=== PATIENT | female | born 1965 | race Caucasian/White ===

== ENCOUNTER → 2017-11-09 | Outpatient (CLI) | payer BC ==
[2017-11-09 12:17] LABS: HEMATOCRIT 40.1 % (36.0-47.0); HEMOGLOBIN 13.6 g/dL (12.0-15.5); MEAN CORPUSCULAR HEMOGLOBIN 30.8 pg (27.0-33.4); MEAN CORPUSCULAR HGB CONC 33.9 g/dL (32.0-36.0); MEAN CORPUSCULAR VOLUME 91 fl (80-97); PLATELET COUNT 291 10^3/uL (150-450); RED BLOOD COUNT 4.42 10^6/uL (3.72-5.28); RED CELL DISTRIBUTION WIDTH 13.4 % (11.5-14.0); WHITE BLOOD COUNT 6.2 10^3/uL (4.0-10.5)
[2017-11-09 12:46] LABS: ANION GAP 10 (5-19); BLOOD UREA NITROGEN 8 mg/dL (7-20); CALCIUM 9.3 mg/dL (8.4-10.2); CARBON DIOXIDE 27 mmol/L (22-30); CHLORIDE 101 mmol/L (98-107); GLUCOSE 95 mg/dL (75-110); POTASSIUM 4.3 mmol/L (3.6-5.0); SODIUM 138.3 mmol/L (137-145)
[2017-11-09 13:49] LABS: FOLATE 9.99 ng/mL (>2.76)
== END ==
LOC: OD 10:56
PROVIDERS: ATTEND Psychiatry & Neurology Psychiatry
DX: F41.0 Panic disorder [episodic paroxysmal anxiety] (principal); Z79.899 Other long term (current) drug therapy
CPT/HCPCS: 36415; 80048; 82607; 82652; 82746; 84443; 85027

== ENCOUNTER 2019-11-13 15:45 | Emergency (ER) | payer BC, OTHER ==
[2019-11-13] MEDS ORDERED: THIAMINE HCL 100 MG, FOLIC ACID 1 MG in NORMAL SALINE 250 ML IV ONE (16:34)
--- NOTE | 2019-11-13 16:48 | ER Document Report ---
ED Psych Disorder / Suicide - General Chief Complaint: Overdose Stated Complaint: OVERDOSE Time Seen by Provider: 11/13/19 16:08 Mode of Arrival: Medic Information source: Relative - Mesfin Notes: 54-year-old female arrived by EMS after overdosing on clonazepam around 20 tablets and Captain Adan or Sander Mckeon. Her confronted her around 1245 after she had been talking to an old lover and she texted back around the same time that she will not be a problem anymore. Mesfin her advises that she had similar threats and gestures over 7 months ago. Patient be cara having an affair around 10 years ago with a [employer] person. His suffered of her mother and father around 20 years ago as well as her son Patel being thrown into nursing home because of drugs at the same time. He is now in his 30s as well as a 31-year-old Evens and 29 yo Shamika. Patient has a history of asthma hypertension and takes hand-held nebulizer treatments as needed for her reactive airway disease. 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 The sequence of events with the grandparents and son in nursing home then followed. is 54 and advised he and patient have been for 35 years. Clonazepam was just filled on 09 November at [place] in [facility]. They are now 42 tablets left. TRAVEL OUTSIDE OF THE [place] IN LAST 30 DAYS: No - HPI Patient complains to provider of: Overdose, Suicidal plan - On text message of Evens's phone. Onset: This afternoon Onset was: Sudden Quality of pain: No pain Severity: Mild Pain Level: Denies Suicide Risk Factors: Depressed, Left letter of attempt Situational problems related to: Significant other, Son Suicide Attempt Method: Overdose Overdose of: Alcohol, Benzodiazepine - Related Data Allergies/Adverse Reactions: azithromycin [Azithromycin] Allergy (Unknown, Verified 11/13/19 16:23) Past Medical History - General Information source: Relative - Social History Smoking Status: Never Smoker Cigarette use (# per day): No Chew tobacco use (# tins/day): No Smoking Education Provided: No Frequency of alcohol use: Social Drug Abuse: Prescription drugs Lives with: Family Family History: Reviewed & Not Pertinent Patient has suicidal ideation: Yes Patient has homicidal ideation: No - Past Medical History Cardiac Medical History: Reports: Hx Hypercholesterolemia, Hx Hypertension - borderline Past Surgical History: Reports: Hx Cholecystectomy, Hx Gynecologic Surgery - endometrial ablation - Immunizations Hx Diphtheria, Pertussis, Tetanus Vaccination: Yes Review of Systems - Review of Systems Constitutional: See HPI, Weakness EENT: No symptoms reported Cardiovascular: No symptoms reported Respiratory: No symptoms reported Gastrointestinal: No symptoms reported Genitourinary: No symptoms reported Female Genitourinary: No symptoms reported Musculoskeletal: No symptoms reported Skin: No symptoms reported Hematologic/Lymphatic: No symptoms reported Neurological/Psychological: See HPI, Weakness, Suicidal ideation Physical Exam - Vital signs Vitals: Temp 98.2 F 11/13/19 15:46 Interpretation: Normal - HEENT Head: Normocephalic, Atraumatic Eyes: Normal Pupils: PERRL Mouth/Lips: Normal Mucous membranes: Normal Pharynx: Normal Neck: Normal - Respiratory Respiratory status: No respiratory distress Chest status: Nontender Breath sounds: Normal Chest palpation: Normal - Cardiovascular Rhythm: Regular Heart sounds: Normal auscultation Murmur: No - Abdominal Inspection: Normal Distension: No distension Bowel sounds: Normal Tenderness: Nontender Organomegaly: No organomegaly - Rectal Hemorrhoids: Other - deferred - Genitourinary Bimanuel exam: Other - deferred - Back Back: Normal - Extremities General upper extremity: Normal inspection General lower extremity: Normal inspection - Neurological Neuro grossly intact: No Cognition: Confused Orientation: Disoriented to person - Psychological Associated symptoms: Confused - Skin Skin Temperature: Warm Skin Moisture: Dry Course - Vital Signs Vital signs: Temp Pulse Resp BP Pulse Ox 98.1 F 16 123/84 100 11/13/19 21:28 11/14/19 01:01 11/14/19 01:00 11/14/19 01:01 - Laboratory Result Diagrams: 11/13/19 16:01 11/13/19 17:00 Laboratory results interpreted by me: 11/13/19 11/13/19 16:01 17:00 Hct 35.9 L RDW 14.6 H Glucose 115 H ALT 39 H Total Protein 6.0 L Salicylates < 1.0 L Acetaminophen < 10 L Critical Care Note - Critical Care Note Comments: [facility] saw pt/evaluated Discharge - Discharge Clinical Impression: Overdose Qualifiers: Encounter type: initial encounter Injury intent: intentional self-harm Qualified Code(s): T50.902A - Poisoning by unspecified drugs, medicaments and biological substances, intentional self-harm, initial encounter Depression Qualifiers: Depression Type: reactive depression Qualified Code(s): F32.9 - Major depressive disorder, single episode, unspecified Condition: Good Disposition: OTHER
[2019-11-13 16:57] LABS: ABSOLUTE BASOPHILS # (AUTO) 0.1 10^3/uL (0.0-0.2); ABSOLUTE EOSINOPHILS # (AUTO) 0.2 10^3/uL (0.0-0.6); ABSOLUTE LYMPHOCYTES (AUTO) 1.5 10^3/uL (0.5-4.7); ABSOLUTE MONOCYTES (AUTO) 0.6 10^3/uL (0.1-1.4); ABSOLUTE NEUT (AUTO) 3.6 10^3/uL (1.7-8.2); BASOPHILS % (AUTO) 1.1 % (0-2); HEMATOCRIT 35.9 % (36.0-47.0); LYMPHOCYTES % (AUTO) 25.1 % (13-45); MEAN CORPUSCULAR HEMOGLOBIN 29.2 pg (27.0-33.4); MEAN CORPUSCULAR HGB CONC 33.5 g/dL (32.0-36.0); MEAN CORPUSCULAR VOLUME 87 fl (80-97); MONOCYTES % (AUTO) 9.6 % (3-13); PLATELET COUNT 393 10^3/uL (150-450); RED BLOOD COUNT 4.12 10^6/uL (3.72-5.28); RED CELL DISTRIBUTION WIDTH 14.6 % (11.5-14.0); SEGMENTED NEUTROPHILS % (AUTO) 61.2 % (42-78); TOTAL CELLS COUNTED % (AUTO) 100 %; WHITE BLOOD COUNT 5.8 10^3/uL (4.0-10.5)
[2019-11-13] MEDS: NORMAL SALINE 1000 ML 1,000 ML IV PRN ×2 (17:04→18:24)
--- NOTE | 2019-11-13 17:21 | PSYCHOLOGICAL NOTE ---
Psych Note - Psych Note Date seen by psych provider: 11/13/19 Time seen by psych provider: 17:30 Psych Note: Reason for Consult: Intentional Overdose Clinician received phone call from community paramedics. They report that the patient overdosed on couple different medications while drinking alcohol. They report that the disclosed that the patient has had an ongoing affair which he found out about in January. Since that timeframe they have been working on their marriage however, the patient reportedly asked for separation and moved out of the family home a few weeks ago. The disclosed to the paramedics that she called him crying and upset and he allowed her to move back in so they could continue working on their marriage. He reported that he found out she was still talking to the other man so he told her today that she needed to move out that he was not continuing to do this. He reported to paramedics that he left after that then got a phone call from the patient stating that she was intentionally overdosing. Patient reportedly has a history of depression however no significant events or maladaptive coping skills. He denies the patient has a substance abuse history. He reports additional family stressors with the family home being lost to mold and currently living in an , one of their children is going through divorce and another one is in usp. Patient is very drowsy but does attempt to engage. She reports EMS transported her to [facility] because she "took pills and drank Sander Mike." She confirms this was a suicide attempt and denies any previous. She states she was upset; "no one wants me...everyone would be better without me..." Patient states she was talking to her daughter in law but does not remember telling anyone what she did or asking for EMS to be contacted. Impression/Plan: Patient is recommended for 24-hour petition for evaluation;paperwork is signed and placed in patient's chart. Currently patient is reporting intentional overdose on medication while drinking Sander Mckeon. She denies any previous suicide attempts. Patient is having difficulty engaging in evaluation due to being very drowsy. EMS reports significant marital discord and infidelity as probable trigger. Evaluation is ongoing. Dr. Faustin was consulted in the care management this patient; tending physicians in agreement with recommendations and disposition.
--- NOTE | 2019-11-13 18:12 | EKG REPORT ---
SEVERITY:- BORDERLINE ECG - SINUS RHYTHM BORDERLINE INFERIOR Q WAVES LA ABNORMALITY : Confirmed by: Javier Rosenthal MD 13-Nov-2019 18:12:11
[2019-11-13 18:37] LABS: ALBUMIN 3.9 g/dL (3.5-5.0); ALCOHOL 60 mg/dL (NONE DETECTED); ALKALINE PHOSPHATASE 58 U/L (38-126); ANION GAP 8 (5-19); ASPARTATE AMINO TRANSFERASE 35 U/L (14-36); BILIRUBIN,DIRECT 0.2 mg/dL (0.0-0.4); BILIRUBIN,TOTAL 0.3 mg/dL (0.2-1.3); BLOOD UREA NITROGEN 12 mg/dL (7-20); CALCIUM 8.8 mg/dL (8.4-10.2); CARBON DIOXIDE 26 mmol/L (22-30); CHLORIDE 104 mmol/L (98-107); GLUCOSE 115 mg/dL (75-110); POTASSIUM 4.2 mmol/L (3.6-5.0)
[2019-11-13 18:43] LABS: ACETAMINOPHEN < 10 ug/mL (10-30); SALICYLATE < 1.0 mg/dL (2.0-20.0)
[2019-11-13 19:40] LABS: APPEARANCE,URINE CLEAR; BILIRUBIN,URINE NEGATIVE (NEGATIVE); COLOR,URINE STRAW; GLUCOSE, URINE NEGATIVE (NEGATIVE); KETONES,URINE NEGATIVE (NEGATIVE); LEUKOCYTE ESTERASE,URINE NEGATIVE (NEGATIVE); NITRITE,URINE NEGATIVE (NEGATIVE); PROTEIN,URINE NEGATIVE (NEGATIVE); URINE SPECIFIC GRAVITY 1.006; UROBILINOGEN,URINE NEGATIVE mg/dL (<2.0)
[2019-11-13 19:53] LABS: URINE AMPHETAMINES SCREEN NEGATIVE; URINE BARBITURATES SCREEN NEGATIVE; URINE BENZODIAZEPINES SCREEN NEGATIVE; URINE COCAINE SCREEN NEGATIVE; URINE MARIJUANA (THC) SCREEN NEGATIVE; URINE METHADONE SCREEN NEGATIVE; URINE PHENCYCLIDINE SCREEN NEGATIVE
[2019-11-14 20:02] VITALS: BP 155/91
== END 2019-11-14 19:50 | disposition home or self-care (01) ==
LOC: ER 15:45
DX: T42.4X2A Poisoning by benzodiazepines, intentional self-harm, initial encounter (principal); T51.0X2A Toxic effect of ethanol, intentional self-harm, initial encounter; R53.1 Weakness; R41.0 Disorientation, unspecified; J45.909 Unspecified asthma, uncomplicated; I10 Essential (primary) hypertension; Z88.1 Allergy status to other antibiotic agents; F32.9 Major depressive disorder, single episode, unspecified; F19.10 Other psychoactive substance abuse, uncomplicated; Z63.0 Problems in relationship with spouse or partner
CPT/HCPCS: 93005; 99285; 96361; 96365; 36415; 80307 ×4; 85025; 80053; 81001; 93010; J3490; J3411; J7030; J7050